=== PATIENT | female | born 1940 | race Hispanic/Latino ===

== ENCOUNTER 2016-10-28 18:13 | Observation (INO) | payer MEDICARE, OTHER ==
[2016-10-28] MEDS ORDERED: ceFAZolin 1 gm in NS 1 GM/100 ML BAG IVPB STA (19:23)
[2016-10-28] MEDS ORDERED: Vancomycin 1gm in NS 250ml 1 GM/250 ML BAG IVPB STA (19:24)
[2016-10-28] MEDS ORDERED: Sodium Chloride 0.9% 1,000 ML IV SCH (19:30)
--- NOTE | 2016-10-28 19:30 | ED PDOC ---
Arrival/HPI - General Chief Complaint: Medical Clearance Time Seen by Provider: 10/28/16 18:45 Historian: Patient - History of Present Illness Narrative History of Present Illness (Text): 10/28/16 19:27 76 year old female who denies any past medical history presents to the emergency department with fever and chills after being attacked by her cat yesterday. Patient states she was scratched on her legs and back. Denies abdominal pain, vomiting, or other complaints. PMD: Dr. Curiel Time/Duration: 24 hours Symptom Onset: Sudden Symptom Course: Unchanged Associated Symptoms (Text): Fever and chills Past Medical History - Provider Review Nursing Documentation Reviewed: Yes - Infectious Disease Hx of Infectious Diseases: None - Reproductive Menopause: Yes - Cardiac Hx Cardiac Disorders: Yes (hypertension) Hx Angina: No Hx Cardiac Arrhythmia: No Hx Circulatory Problems: No Hx Congestive Heart Failure: No Hx Heart Murmur: No Hx Heart Transplant: No Hx Hypertension: Yes Hx Internal Defibrillator: No Hx Mitral Valve Prolapse: No Hx Pacemaker: No Hx Peripheral Edema: Yes (bl le edema) Hx Peripheral Vascular Disease: Yes (left polpliteal bipass graft) - Pulmonary Hx Respiratory Disorders: No Hx Asthma: No Hx Bronchitis: No Hx Chronic Obstructive Pulmonary Disease (COPD): No Hx Emphysema: No Hx Pneumonia: No Hx Respiratory Aspiration: No Hx Respiratory Tract Infection: No Hx Sleep Apnea: No Hx Tuberculosis: No - Neurological Hx Neurological Disorder: No Hx Alzheimer's Disease: No HX Cerebrovascular Accident: No Hx Dementia: No Hx Dizziness: No Hx Meningitis: No Hx Migraine: No Hx Parkinson's Disease: No Hx Seizures: No Hx Transient Ischemic Attacks (TIA): No - HEENT Hx HEENT Disorder: No Hx Blind: No Hx Cataracts: No Hx Deafness: No Hx Difficulty Chewing: No Hx Epistaxis: No Hx Glaucoma: No Hx Macular Degeneration: No Other/Comment: had a devaited septum - Renal Hx Renal Disorder: No Hx Dialysis: No Hx Kidney Stones: No Hx Neurogenic Bladder: No Hx Pyelonephritis: No Hx Renal Cancer: No Hx Renal Failure: No - Endocrine/Metabolic Hx Endocrine Disorders: No Hx Adrenal Cancer: No Hx Diabetes Insipidus: No Hx Diabetes Mellitus Type 1: No Hx Diabetes Mellitus Type 2: No Hx Hyperthyroidism: No Hx Hypothyroidism: Yes Hx Systemic Lupus Erythematosus: No - Hematological/Oncological Hx Blood Disorders: No Hx AIDS: No Hx Anemia: No Hx Cancer: No Hx Chemotherapy: No Hx Cirrhosis: No Hx Hemophilia: No Hx Hepatitis A: No Hx Hepatitis B: No Hx Hepatitis C: No Hx Metastasis: No Hx Shingles: No Hx Sickle Cell Disease: No Hx Unexplained Bleeding: No - Integumentary Hx Dermatological Disorder: No Hx Basal Cell Carcinoma: No Hx Eczema: No Hx Melanoma: No Hx Psoriasis: No Hx Squamous Cell Carcinoma: No - Musculoskeletal/Rheumatological Hx Musculoskeletal Disorders: No Hx Arthritis: No Hx Back Pain: No Hx Degenerative Joint Disease: No Hx Falls: No Hx Fractures: No Hx Gout: No Hx Herniated Disk: No Hx Myasthenia Gravis: No Hx Osteoarthritis: No Hx Osteomyelitis: No Hx Osteoporosis: No Hx Rhabdomyolysis: No Hx Spinal Stenosis: No Hx Unsteady Gait: No - Gastrointestinal Hx Gastrointestinal Disorders: No Hx Colostomy: No Hx Crohn's Disease: No Hx Diverticulitis: No Hx Gall Bladder Disease: No Hx Gastroesophageal Reflux: No Hx Gastrointestinal Ulcer: No Hx Ileostomy: No Hx Liver Failure: No Hx Pancreatitis: No HX Swallowing Problems: No - Genitourinary/Gynecological Hx Genitourinary Disorders: No Hx Hematuria: No Hx Incontinence: No Hx Prostate Problems: No Hx Sexually Transmitted Diseases: No Hx Urinary Tract Infection: No - Psychiatric Hx Psychophysiologic Disorder: No Hx Anxiety: No Hx Bipolar Disorder: No Hx Depression: No Hx Emotional Abuse: No Hx Hallucinations: No Hx Panic Disorder: No Hx Post Traumatic Stress Disorder: No Hx Psychosis: No Hx Physical Abuse: No Hx Schizophrenia: No Hx Sexual Abuse: No Hx Substance Use: No - Past Surgical History Past Surgical History: No Previous - Surgical History Hx Amputation: No Hx Appendectomy: No Hx Cardiac Catheterization: No Hx Cholecystectomy: No Hx Coronary Stent: No Hx Gastric Bypass Surgery: No Hx Hysterectomy: No Hx Joint Replacement: No Hx Kidney Transplant: No Hx Liver Transplant: No Hx Mastectomy: No Hx Musculoskeletal Surgery: No Hx Open Heart Surgery: No Hx Orthopedic Surgery: No Hx Splenectomy: No Hx Valve Replacement: No Other/Comment: deviated septum repair - Anesthesia Hx Anesthesia: Yes Hx Anesthesia Reactions: No Hx Malignant Hyperthermia: No - Suicidal Assessment Feels Threatened In Home Enviroment: No Family/Social History - Physician Review Nursing Documentation Reviewed: Yes Family/Social History: Unknown Family HX Smoking Status: Former Smoker Hx Alcohol Use: No Hx Substance Use: No Allergies/Home Meds Allergies/Adverse Reactions: Allergies No Known Allergies Allergy (Verified 10/28/16 18:18) Home Medications: Home Meds Medication Instructions Recorded Confirmed No Known Home Med 10/28/16 10/28/16 Review of Systems - Physician Review All systems were reviewed & negative as marked: Yes - Review of Systems Constitutional: Fevers, Other (Chills) Gastrointestinal: absent: Abdominal Pain, Vomiting Skin: Other (Healing wound on left lower extremity) Physical Exam Vital Signs Reviewed: Yes Vital Signs Temp Pulse Resp BP Pulse Ox 10/29/16 00:26 99.6 F 80 18 144/63 97 10/28/16 20:14 84 16 143/80 99 10/28/16 18:21 99.3 F 88 19 145/87 100 Temperature: Afebrile Blood Pressure: Normal Pulse: Regular Respiratory Rate: Normal Appearance: Positive for: Well-Appearing, Non-Toxic, Comfortable Pain Distress: None Mental Status: Positive for: Alert and Oriented X 3 - Systems Exam Head: Present: Atraumatic, Normocephalic Mouth: Present: Moist Mucous Membranes Neck: Present: Normal Range of Motion Respiratory/Chest: Present: Clear to Auscultation, Good Air Exchange. No: Respiratory Distress, Accessory Muscle Use Cardiovascular: Present: Regular Rate and Rhythm, Normal S1, S2. No: Murmurs Abdomen: Present: Normal Bowel Sounds. No: Tenderness, Distention, Peritoneal Signs Upper Extremity: Present: Normal Inspection. No: Cyanosis, Edema Lower Extremity: Present: Edema, NORMAL PULSES (2+), Normal ROM, Tenderness, Swelling, Erythema, Temperature Abnormalties, Neurovascularly Intact, Capillary Refill < 2 s, Other (Healing wound site of injury. Surrounding cellulitis streaking down the leg to the ankle and up towards the knee. ). No: CALF TENDERNESS, Cyanosis, Dea's Sign, Deformity Neurological: Present: GCS=15, CN II-XII Intact, Speech Normal Skin: Present: Warm, Dry, Normal Color. No: Rashes Psychiatric: Present: Alert, Oriented x 3 Medical Decision Making ED Course and Treatment: Impression: 76 year old female who denies any past medical history presents to the emergency department with fever and chills after being attacked by her cat yesterday. Differential Diagnosis included but are not limited to: bug bite, cellulitis Plan: -- EKG, Chest X-ray -- Ancef, Vancomycin -- Labs --tetanus (unknown last shot) -- IV fluids -- Reassess and disposition Progress Notes: Ordered Ancef and Vancomycin. Vitals stable. Chemistry unremarkable. Will admit for cellulitis. 10/28/16 21:[address] Soriano, covering for Dr. Richards, who accepts for admission. discussed plan at bedside with brandy and her daughter. they are agreeable 10/29/16 11:20 - Lab Interpretations Lab Results: 10/28/16 19:00 10/28/16 19:00 Lab Results 10/28/16 19:00: Sodium 134, Potassium 4.1, Chloride 100, Carbon Dioxide 23, Anion Gap 15, BUN 15, Creatinine 0.9, Est GFR ( Amer) > 60, Est GFR (Non- Af Amer) > 60, Random Glucose 101, Calcium 8.9, Total Bilirubin 1.2, AST 25, ALT 26, Alkaline Phosphatase 79, Total Protein 6.8, Albumin 4.0, Globulin 2.9, Albumin/Globulin Ratio 1.4 10/28/16 19:00: PT 11.5, INR 1.06, APTT 32.7 H 10/28/16 19:00: WBC 12.9 H, RBC 4.61, Hgb 14.4, Hct 41.4, MCV 89.8, MCH 31.2, MCHC 34.8, RDW 13.6, Plt Count 186, MPV 10.6, Gran % 86.1 H, Lymph % (Auto) 8.5 L, [place] % (Auto) 5.0, Eos % (Auto) 0.2 L, Baso % (Auto) 0.2, Gran # 11.08 H, Lymph # 1.1 L, [place] # 0.7 H, Eos # 0.0, Baso # 0.03 - RAD Interpretation Radiology Orders: 10/28/16 19:21 CHEST PORTABLE [RAD] Stat - Medication Orders Current Medication Orders: Ampicillin Sodium/Sulbactam (Sodium 3 gm/ Sodium Chloride) 100 mls @ 200 mls/ hr IVPB Q6 [facility] PRN Reason: Protocol Vancomycin HCl (Vancomycin 1gm) 1 gm in 250 mls @ 167 mls/hr IVPB Q12H [facility] PRN Reason: Protocol Last Admin: 10/29/16 08:50 Dose: 167 mls/hr Discontinued Medications Acetaminophen (Tylenol 325mg Tab) 650 mg PO STAT STA Stop: 10/29/16 01:19 Last Admin: 10/29/16 01:36 Dose: 650 mg Cefazolin Sodium (Ancef 1gm In Ns) 1 gm in 100 mls @ 100 mls/hr IVPB STAT STA PRN Reason: Protocol Stop: 10/28/16 20:22 Last Admin: 10/28/16 19:40 Dose: 100 mls/hr Vancomycin HCl (Vancomycin 1gm) 1 gm in 250 mls @ 167 mls/hr IVPB STAT STA PRN Reason: Protocol Stop: 10/28/16 20:53 Last Admin: 10/28/16 19:50 Dose: 167 mls/hr Sodium Chloride (Sodium Chloride 0.9%) 1,000 mls @ 100 mls/hr IV .Q10H [facility] Last Admin: 10/28/16 19:40 Dose: 100 mls/hr Tetanus/Reduced Diphtheria/Acell Pertussis (Boostrix Vaccine Inj) 0.5 ml IM .ONCE ONE Stop: 10/28/16 21:34 Last Admin: 10/28/16 23:07 Dose: 0.5 ml - Scribe Statement The provider has reviewed the documentation as recorded by the Pradeep Jay Provider Scribe Attestation: All medical record entries made by the Dmitriyibbreana were at my direction and personally dictated by me. I have reviewed the chart and agree that the record accurately reflects my personal performance of the history, physical exam, medical decision making, and the department course for this patient. I have also personally directed, reviewed, and agree with the discharge instructions and disposition. Disposition/Present on Arrival - Present on Arrival Any Indicators Present on Arrival: Yes History of DVT/PE: No History of Uncontrolled Diabetes: No Urinary Catheter: Yes History of Decub. Ulcer: No History Surgical Site Infection Following: None - Disposition Have Diagnosis and Disposition been Completed?: Yes Diagnosis: Cellulitis Disposition: HOSPITALIZED Disposition Time: 20:00 Patient Plan: Admission Condition: GOOD
[2016-10-28 19:54] LABS: ADD MANUAL DIFF? NO
[2016-10-28 20:05] LABS: BASO # 0.03 K/mm3 (0.0-2.0); BASO % 0.2 % (0.0-3.0); EOS % 0.2 % (1.5-5.0); GRAN # 11.08 (1.4-6.5); GRAN % 86.1 % (50.0-68.0); HEMATOCRIT 41.4 % (36.0-48.0); LYMPH # 1.1 (1.2-3.4); LYMPH % 8.5 % (22.0-35.0); MEAN CELL VOLUME 89.8 fL (80.0-105.0); MEAN CORPUSCULAR HEMOGLOBIN 31.2 pg (25.0-35.0); MEAN CORPUSCULAR HGB CONC 34.8 g/dl (31.0-37.0); MEAN PLATELET VOLUME 10.6 fl (7.0-11.0); MONO # 0.7 (0.1-0.6); PLATELET COUNT 186 10^3/uL (120.0-450.0); RED CELL DISTRIBUTION WIDTH 13.6 % (11.5-14.5); WHITE BLOOD COUNT 12.9 10^3/ul (4.5-11.0)
[2016-10-28 20:10] LABS: ALB/GLOB RATIO 1.4 (1.1-1.8); ALKALINE PHOSPHATASE 79 U/L (38-133); ALT/SGPT 26 U/L (7-56); AST/SGOT 25 U/L (15-39); BILIRUBIN,TOTAL 1.2 mg/dL (0.2-1.3); BLOOD UREA NITROGEN 15 mg/dL (7-21); CALCIUM 8.9 mg/dL (8.4-10.5); CARBON DIOXIDE 23 mmol/L (21-33); CHLORIDE 100 mmol/L (98-107); GFR AFRICAN-AMERICAN > 60; GLUCOSE,RANDOM 101 mg/dL (70-110); POTASSIUM 4.1 mmol/L (3.6-5.0); SODIUM 134 mmol/L (132-148); TOTAL PROTEIN 6.8 g/dL (5.8-8.3)
[2016-10-28 20:14] LABS: INR 1.06 (0.93-1.08); PARTIAL THROMBOPLASTIN TIME 32.7 Seconds (23.7-30.8)
[2016-10-28] MEDS ORDERED: TDAP Vaccine 0.5 mL Syr IM ONE (21:33)
[2016-10-29 03:00] VITALS: BMI 27.3
[2016-10-29] MEDS: Ampicillin/Sulbactam 3 GM in Sodium Chloride 0.9% 100 ML IVPB SCH ×3 (08:00→11:25)
[2016-10-29] MEDS ORDERED: Vancomycin 1gm in NS 250ml 1 GM/250 ML BAG IVPB SCH (08:00)
--- NOTE | 2016-10-29 09:01 | RAD ---
HISTORY: Sepsis Patient COMPARISON: 12/28/2012 FINDINGS: LUNGS: Perihilar mostly infrahilar bronchovascular markings appear prominent/increased be a chronic status is conspicuity is greater on the current study- occurrences also less contrast-with less penetration. No dense consolidation seen. PLEURA: No significant pleural effusion identified, no pneumothorax apparent. CARDIOVASCULAR: Top-normal heart size. 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 OTHER FINDINGS: None. IMPRESSION: Probable mild chronic pulmonary vascular congestion and/or chronic mild interstitial lung disease. Top-normal heart size No interval consolidation. Bilateral shoulder findings as above - no interval change here perceived
[2016-10-29 09:19] VITALS: BP 106/57; PULSE 63; RESP 22; TEMP 98.4; O2SAT 96
--- NOTE | 2016-10-29 11:53 | CP.PCM.CON ---
History of Present Illness - History of Present Illness History of Present Illness: 76 year old female with PMH of HTN, peripheral vascular disease S/P left popliteal bypass graft came in to [facility] after being attacked by her daughter's cat yesterday. Apparently the adult cat got frightened by other house cat of the daughter and scratched the patient on the left leg with her front claws. The patient denies bites from the cat. As per the daughter, the cat is healthy without illness. The patient noted the area to be erythematous and painful a few hours after the scratches. She notes that the swelling and erythema have decreased since yesterday and while on antibiotics. She denies fever or chills, no nausea or vomiting, no headache or dizziness, no chest pain, no SOB, no abdominal pain, no diarrhea, no dysuria. Infectious Diseases consult is requested to further evaluate and manage. Review of Systems - Review of Systems All systems: reviewed and no additional remarkable complaints except (as per HPI ) Past Patient History - Infectious Disease Hx of Infectious Diseases: None - Past Social History Smoking Status: Current Some Days Smoker - CARDIAC Hx Hypercholesterolemia: Yes Hx Hypertension: Yes Hx Peripheral Vascular Disease: Yes (LEFT FEM POP BI-PASS) - PULMONARY Other/Comment: SMOKES - NEUROLOGICAL Hx Neurological Disorder: No Hx Alzheimer's Disease: No HX Cerebrovascular Accident: No Hx Dementia: No Hx Dizziness: No Hx Meningitis: No Hx Migraine: No Hx Parkinson's Disease: No Hx Seizures: No Hx Transient Ischemic Attacks (TIA): No - HEENT Other/Comment: DEVIATED SEPTUM - RENAL Hx Chronic Kidney Disease: No Hx Dialysis: No Hx Kidney Stones: No Hx Neurogenic Bladder: No Hx Pyelonephritis: No Hx Renal (Kidney) Cancer: No Hx Renal Failure: No - ENDOCRINE/METABOLIC Hx Hypothyroidism: Yes - HEMATOLOGICAL/ONCOLOGICAL Hx Blood Disorders: No Hx AIDS: No Hx Anemia: No Hx Cancer: No Hx Chemotherapy: No Hx Cirrhosis: No Hx Hemophilia: No Hx Hepatitis A: No Hx Hepatitis B: No Hx Hepatitis C: No Hx Metastesis: No Hx Shingles: No Hx Sickle Cell Disease: No Hx Unexplained Bleeding: No - INTEGUMENTARY Hx Dermatological Problems: No Hx Basil Cell: No Hx Eczema: No Hx Melanoma: No Hx Psoriasis: No Hx Squamous Cell: No - MUSCULOSKELETAL/RHEUMATOLOGICAL Hx Falls: No - GASTROINTESTINAL Hx Gastrointestinal Disorders: No Hx Colostomy: No Hx Crohn's Disease: No Hx Diverticulitis: No Hx Gall Bladder Disease: No Hx Gastroesophageal Reflux: No Hx Ileostomy: No Hx Liver Failure: No Hx Pancreatitis: No HX Swallowing Problems: No - GENITOURINARY/GYNECOLOGICAL Hx Genitourinary Disorders: No Hx Hematuria: No Hx Incontinence: No Hx Sexually Transmitted Disorders: No Hx Urinary Tract Infection: No - PSYCHIATRIC Hx Substance Use: No - SURGICAL HISTORY Hx Surgeries: Yes - ANESTHESIA Hx Anesthesia: Yes Hx Anesthesia Reactions: No Hx Malignant Hyperthermia: No Meds Allergies/Adverse Reactions: Allergies Allergy/AdvReac Type Severity Reaction Status Date / Time No Known Allergies Allergy Verified 10/28/16 18:18 - Medications Medications: Current Medications Sodium Chloride (Sodium Chloride 0.9%) 1,000 mls @ 100 mls/hr IV .Q10H [facility]ITA Last Admin: 10/28/16 19:40 Dose: 100 mls/hr Physical Exam - Constitutional Appears: Non-toxic, No Acute Distress - Head Exam Head Exam: NORMAL INSPECTION - ENT Exam ENT Exam: Mucous Membranes Moist - Neck Exam Neck exam: Negative for: Lymphadenopathy, Meningismus - Respiratory Exam Respiratory Exam: Decreased Breath Sounds - Cardiovascular Exam Cardiovascular Exam: +S1, +S2 - GI/Abdominal Exam GI & Abdominal Exam: Soft. absent: Tenderness - Extremities Exam Additional comments: left anterior leg with area of scratch and surrounding erythema, mildly tender, no fluctuance, no puncture wounds noted Results - Vital Signs Recent Vital Signs: Last Vital Signs Temp 100.1 F H 10/29/16 02:47 Pulse 72 10/29/16 02:47 Resp 20 10/29/16 02:47 BP 123/60 10/29/16 02:47 Pulse Ox 97 10/29/16 00:26 - Labs Result Diagrams: 10/28/16 19:00 10/28/16 19:00 Assessment & Plan - Assessment and Plan (Free Text) Plan: Assessment Left leg skin and skin structure infection, non-purulent, probably related to trauma from scratch from a house cat HTN peripheral vascular disease S/P left popliteal bypass graft Plan Patient on Vancomycin and Unasyn - as discussed with Dr. Germain, patient can be sent on PO Moxifloxacin and Doxycycline to complete a 7-10 day course
--- NOTE | 2016-10-29 12:53 | HP ---
CHIEF COMPLAINT AND HISTORY OF PRESENT ILLNESS: This is a 76-year-old female who is coming into the hospital because of a cat scratch 2 days ago. She says that she had been attacked by her cat the day before coming into the hospital. She denies any drainage. She said initially she was painful, but has improved. She has no complaints of any fevers or chills, no nausea, no vomiting, no dysuria, tegan quency, no nocturia, no headaches, no weakness in the arms or the legs. No bites. REVIEW OF SYSTEMS: All other review of symptoms is within normal limits except as mentioned. ALLERGIES: No known drug allergies. HOME MEDICATIONS: None. SOCIAL HISTORY: She is a former smoker. Denies alcohol and substance abuse. FAMILY HISTORY: Noncontributory. PHYSICAL EXAMINATION: VITAL SIGNS: Temperature is 100.1, pulse of 63, blood pressure 106/57, respirations 22, O2 saturatio n 96%. Height is 5 feet 8, weight is 180 pounds, BMI is 27.4. GENERAL: Patient lying in bed, flat, and in no apparent distress. HEAD AND NECK EXAM: Atraumatic, normocephalic. Conjunctivae are pink. Throat clear and mouth with moist mucosa. Oropharynx benign. EYES: Extraocular movements are intact. PERRLA. NECK: Supple. No JVD, thyromegaly, or adenopathy. No bruits. HEART: S1 and S2 regular rate and rhythm. No murmurs, rubs, or gallops. LUNGS: Clear to auscultation bilaterally. No wheezing rales or rhonchi appreciated. No retraction s on exam. ABDOMEN: Soft, nontender, nondistended. Bowel sounds are positive in all quadrants. No rebound. No hepatosplenomegaly. EXTREMITIES: In the left leg, there are scratches that can be seen. There is no opening in the sk in. There is no erythema, no exudates. NEURO: No facial asymmetry, tongue is midline, no uvula deviation. Power is 5/5 in upper extremity and 5/5 in lower extremity. Sensation is normal in upper extremity and lower extremity. PSYCH: Awake, alert, oriented x3. No anxiety or depression symptoms. Good insight. Normal affec t. : No CVA tenderness VASCULAR: 2+ pulses in carotid and pedal pulses. SKIN: No erythema or abnormal nodules noted. SPINE: Normal curvature. LYMPHADENOPATHY: No anterior cervical or posterior cervical adenopathy. No inguinal adenopathy. LABORATORY DATA: White count of 12.9. Chemistry shows a sodium 134, potassium 4.1. Chest x-ray done shows no infiltrates. EKG shows sinus rhythm at 85. There is right axis deviation, QTC is 414. ASSESSMENT: Left leg cat scratch/cellulitis. PLAN: The patient is currently comfortable. She has minimal signs of infection. ____. She was giv en Ancef in the ER. She is on a regular diet. The patient is going to be seen by infectious disease . If she is cleared, I will discharge the patient home and have her follow up as an outpatient. Jose Soriano MD cc: [id number] TT: 10/29/2016 10:00:36 wa
--- NOTE | 2016-10-29 16:13 | CARD ---
APPROVED REPORT EKG Measurement Heart [id number] CO [id number] <Conclusion> Normal sinus rhythm Right axis deviation Possible Right ventricular hypertrophy Nonspecific T wave abnormality Abnormal ECG
== END 2016-10-29 14:20 | disposition home or self-care (01) ==
LOC: ED 18:13 → INTOOBSV 21:30 → ERH 21:30 → 3RSO 10-29 01:12
PROVIDERS: ADMIT Internal Medicine Nephrology; ATTEND Internal Medicine Nephrology
DX: L03.116 Cellulitis of left lower limb (principal); W55.03XA Scratched by cat, initial encounter; I73.9 Peripheral vascular disease, unspecified; I10 Essential (primary) hypertension; Z23 Encounter for immunization; Z87.891 Personal history of nicotine dependence
CPT/HCPCS: 71010; 80053; 85025; 85610; 85730; 87040; 90471; 90715; 93005; 96365; 96368; 99285; G0378; J0295; J0690; J7040

== ENCOUNTER 2018-05-01 10:32 | Emergency (ER) | payer MEDICARE ==
[2018-05-01 10:41] VITALS: BMI 27.5
--- NOTE | 2018-05-01 11:22 | ED PDOC ---
Arrival/HPI - General Chief Complaint: Groin Pain Time Seen by Provider: 05/01/18 10:39 - History of Present Illness Narrative History of Present Illness (Text): 05/01/18 11:22 78 f with no significant pmhx presents to the ED with pain to her inner right groin area since 4 days ago. Patient reports bilateral leg weakness and pain to right groin area when walking. Patient states she applied an icy-hot patch to alleviate the pain but was burned by the patch. Patient notes pain in her groin area is non-radiating. Patient denies any hip pain, knee pain, lower back pin or any other complaints. PMD: Dr. Richards Time/Duration: < week (4 days) Symptom Onset: Gradual Symptom Course: Unchanged Activities at Onset: Light Context: Home Past Medical History - Provider Review Nursing Documentation Reviewed: Yes - Infectious Disease Hx of Infectious Diseases: None - Reproductive Menopause: Yes - Cardiac Hx Hypertension: Yes Hx Peripheral Vascular Disease: Yes (LEFT FEM POP BI-PASS) - Pulmonary Other/Comment: SMOKES - Neurological Hx Neurological Disorder: No - HEENT Other/Comment: DEVIATED SEPTUM - Renal Hx Renal Disorder: No - Endocrine/Metabolic Hx Hypothyroidism: Yes - Hematological/Oncological Hx Blood Disorders: No - Integumentary Hx Dermatological Disorder: No - Musculoskeletal/Rheumatological Hx Falls: No - Gastrointestinal Hx Gastrointestinal Disorders: No - Genitourinary/Gynecological Hx Genitourinary Disorders: No - Psychiatric Hx Psychophysiologic Disorder: No Hx Substance Use: No - Past Surgical History Past Surgical History: No Previous - Surgical History Hx Amputation: No Hx Appendectomy: No Hx Cardiac Catheterization: No Hx Cholecystectomy: No Hx Coronary Stent: No Hx Gastric Bypass Surgery: No Hx Hysterectomy: No Hx Joint Replacement: No Hx Kidney Transplant: No Hx Liver Transplant: No Hx Mastectomy: No Hx Musculoskeletal Surgery: No Hx Open Heart Surgery: No Hx Orthopedic Surgery: No Hx Splenectomy: No Hx Valve Replacement: No Other/Comment: deviated septum repair - Anesthesia Hx Anesthesia: Yes Hx Anesthesia Reactions: No Hx Malignant Hyperthermia: No - Suicidal Assessment Feels Threatened In Home Enviroment: No Family/Social History - Physician Review Nursing Documentation Reviewed: Yes Family/Social History: No Known Family HX Smoking Status: Current Some Days Smoker Hx Alcohol Use: No Hx Substance Use: No Allergies/Home Meds Allergies/Adverse Reactions: Allergies No Known Allergies Allergy (Verified 10/28/16 18:18) Home Medications: Home Meds Medication Instructions Recorded Confirmed Aspirin [Aspirin Chewable] 81 mg PO DAILY 05/01/18 05/01/18 Review of Systems - Physician Review All systems were reviewed & negative as marked: Yes - Review of Systems Genitourinary Female: Other (+pain to inner right groin area) Musculoskeletal: absent: Back Pain, Other (no hip pain, no knee pain) Physical Exam - Physical Exam Narrative Physical Exam (Text): 05/01/18 11:26 Gen: VS reviewed, alert, well developed, well nourished, nontoxic, mild distress, antalgic gait. ENT: normal pharynx. Eye: EOMI, PERRL. Neck: no JVD, supple, no adenopathy. CV: regular rate, regular rhythm, no rubs, no murmur, no gallops, S1, S2, pulses equal and strong. Pulm: no distress, clear to auscultation, no wheeze, no rhonchi, breath sounds equal, no rales. Abd: soft, nontender, no guarding, no rebound, no rigidity, normal bowel sounds. Ext: Pain with compression and internal rotation of right hip, no edema. Skin: Area of healing bruising on right medial thigh, no broken skin or blisters. Psych: responds appropriately to questions, normal affect. Neuro: oriented x 3, CN2-12 intact grossly, motor intact, sensation intact. Vital Signs Reviewed: Yes Vital Signs Temp Pulse Resp BP Pulse Ox 05/01/18 10:43 98.5 F 77 16 149/91 H 100 Temperature: Afebrile Blood Pressure: Hypertensive Pulse: Regular Respiratory Rate: Normal Appearance: Positive for: Well-Appearing, Non-Toxic Medical Decision Making ED Course and Treatment: 05/01/18 14:56 patient seen for right hip pain, pain with ambulation, no trauma, no leg weakness, no numbness. pain is clearly focal to the right hip. Pain completely resolved with dose of motrin, patient ambulate to ambulated with complete resolution of pain. patient stable for dc and refer to ortho/pcp. - Scribe Statement The provider has reviewed the documentation as recorded by the Pradeep Farrell All medical record entries made by the Dmitriyibbreana were at my direction and personally dictated by me. I have reviewed the chart and agree that the record accurately reflects my personal performance of the history, physical exam, medical decision making, and the department course for this patient. I have also personally directed, reviewed, and agree with the discharge instructions and d isposition. Disposition/Present on Arrival - Present on Arrival Any Indicators Present on Arrival: No History of DVT/PE: No History of Uncontrolled Diabetes: No Urinary Catheter: Yes History of Decub. Ulcer: No History Surgical Site Infection Following: None - Disposition Have Diagnosis and Disposition been Completed?: Yes Diagnosis: Hip arthritis Disposition: HOME/ ROUTINE Disposition Time: 15:01 Patient Plan: Discharge Condition: STABLE Discharge Instructions (ExitCare): Osteoarthritis Additional Instructions: Return for any new or worsening symptoms. Follow up with an orthopedic surgeon. JOAQUIM CERNA, thank you for letting us take care of you today. Your provider was Dr.Lamont Salvador and you were treated for arthritis of the right hip. The emergency medical care you received today was directed at your acute symptoms. If you were prescribed any medication, please fill it and take as directed. It may take several days for your symptoms to resolve. Return to the Emergency Department if your symptoms worsen, do not improve, or if you have any other problems. Please contact your doctor or call one of the physicians/clinics you have been referred to that are listed on the Patient Visit Information form that is included in your discharge packet. Bring any paperwork you were given at discharge with you along with any medications you are taking to your follow up visit. Our treatment cannot replace ongoing medical care by a primary care provider outside of the emergency department. Thank you for allowing the [facility] [employer] team to be part of your care today. If you had an X-Ray or CT scan: A Radiologist will review the ED reading if any change in treatment is needed we will contact you. If you had a blood, urine, or wound culture: It will take several days for the results, if any change in treatment is needed we will contact you. If you had an STI test: It will take 48 hours for the results. Please call after 1 week if you have not heard back. Prescriptions: Ibuprofen [Motrin Tab] 600 mg PO QID #42 tab Referrals: Anjali Richards DO [Primary Care Provider] - Follow up with primary Marcos Falk III, MD [Medical Doctor] - Follow up with primary [employer] [Outside] - Follow up with primary Abigail Cabrera MD [Medical Doctor] - Follow up with primary Forms: [employer] (Maltese)
--- NOTE | 2018-05-01 14:55 | RAD ---
Indication: pain, focus acetabulum area Right hip with pelvis radiographs Comparison: CT abdomen and pelvis without/with IV contrast performed 11/03/14 Findings: Osseous demineralization. Degenerative changes. Marked joint space narrowing and subchondral sclerosis. No acute displaced fracture or dislocation identified. Sacroiliac joints appear intact. Mild constipation. Soft tissues appear unremarkable. No evidence of radiopaque foreign body. Vascular stent, left pelvis. Impression: Osseous demineralization. Degenerative changes including marked joint space narrowing and subchondral sclerosis. No acute displaced fracture or dislocation evident. If high clinical index of suspicion, suggest cross-sectional imaging for further evaluation. Otherwise, if symptoms persist or if there is continued clinical concern, x-ray follow-up in 7-10 days should be considered.
[2018-05-01 15:10] VITALS: BP 129/83; PULSE 75; RESP 19; TEMP 97; O2SAT 99
== END 2018-05-01 15:12 | disposition home or self-care (01) ==
LOC: ED 10:32
DX: M16.11 Unilateral primary osteoarthritis, right hip (principal)

== ENCOUNTER 2018-05-29 11:02 | Emergency (ER) | payer MEDICARE ==
[2018-05-29 11:02] VITALS: BMI 27.5
[2018-05-29 11:25] VITALS: RESP 18; TEMP 98.6; O2SAT 99
--- NOTE | 2018-05-29 12:00 | ED PDOC ---
Arrival/HPI - General Chief Complaint: Lower Extremity Problem/Injury Time Seen by Provider: 05/29/18 11:22 - History of Present Illness Narrative History of Present Illness (Text): 05/29/18 11:59 78 y/o F with PMHx of PVD s/p L popliteal bypass graft, R hip osteoarthritis presents to ED with complaints of R groin pain thats is 10/10 severity at its worse that is exacerbated with walking, alleviated with ibuprofen 600mg that she has been taking, thats worst at night. She reports she presented last month for a similar complaint. She denies any recent trauma to the area. She had followed up with orthopedic surgery after her visit last month, and was told she may need a hip replacement in the future. She currently presents to ED as she ran out of pain medication and would like relief. She denies numbness or tingling to the leg, erythema, discharge, leg weakness, falls. She denies fevers, chills, headache, dizziness, chest pain, palpitations, shortness of breath, n/v/c/d/dysuria. Time/Duration: Prior to Arrival Symptom Onset: Gradual Symptom Course: Unchanged Severity Level: Moderate Past Medical History - Provider Review Nursing Documentation Reviewed: Yes - Infectious Disease Hx of Infectious Diseases: None - Reproductive Menopause: Yes - Cardiac Hx Cardiac Disorders: Yes Hx Hypertension: Yes Hx Peripheral Vascular Disease: Yes (LEFT FEM POP BI-PASS) - Pulmonary Other/Comment: SMOKES - Neurological Hx Neurological Disorder: No - HEENT Other/Comment: DEVIATED SEPTUM - Renal Hx Renal Disorder: No - Endocrine/Metabolic Hx Hypothyroidism: Yes - Hematological/Oncological Hx Blood Disorders: No - Integumentary Hx Dermatological Disorder: No - Musculoskeletal/Rheumatological Hx Falls: No - Gastrointestinal Hx Gastrointestinal Disorders: No - Genitourinary/Gynecological Hx Genitourinary Disorders: No - Psychiatric Hx Psychophysiologic Disorder: No Hx Substance Use: No - Past Surgical History Past Surgical History: No Previous - Surgical History Hx Amputation: No Hx Appendectomy: No Hx Cardiac Catheterization: No Hx Cholecystectomy: No Hx Coronary Stent: No Hx Gastric Bypass Surgery: No Hx Hysterectomy: No Hx Joint Replacement: No Hx Kidney Transplant: No Hx Liver Transplant: No Hx Mastectomy: No Hx Musculoskeletal Surgery: No Hx Open Heart Surgery: No Hx Orthopedic Surgery: No Hx Splenectomy: No Hx Valve Replacement: No Other/Comment: deviated septum repair - Anesthesia Hx Anesthesia: Yes Hx Anesthesia Reactions: No Hx Malignant Hyperthermia: No - Suicidal Assessment Feels Threatened In Home Enviroment: No Family/Social History - Physician Review Nursing Documentation Reviewed: Yes Family/Social History: Unknown Family HX Smoking Status: Current Some Days Smoker Hx Alcohol Use: No Hx Substance Use: No Allergies/Home Meds Allergies/Adverse Reactions: Allergies No Known Allergies Allergy (Verified 10/28/16 18:18) Home Medications: Home Meds Medication Instructions Recorded Confirmed Aspirin [Aspirin Chewable] 81 mg PO DAILY 05/01/18 05/01/18 Review of Systems - Review of Systems Constitutional: Normal. absent: Fevers, Night Sweats Eyes: Normal ENT: Normal Respiratory: Normal Cardiovascular: Normal Gastrointestinal: Normal Genitourinary Female: Normal Musculoskeletal: Arthralgias. absent: Back Pain, Joint Swelling, Myalgias Skin: Normal Neurological: Normal Endocrine: Normal Hemo/Lymphatic: Normal Psychiatric: Normal Physical Exam Vital Signs Reviewed: Yes Vital Signs Temp Pulse Resp BP Pulse Ox 05/29/18 11:22 98.6 F 74 18 159/78 H 99 Temperature: Afebrile Blood Pressure: Hypertensive Pulse: Regular Respiratory Rate: Normal Appearance: Positive for: Well-Appearing, Non-Toxic, Comfortable Pain Distress: None Mental Status: Positive for: Alert and Oriented X 3 - Systems Exam Head: Present: Atraumatic, Normocephalic Pupils: Present: PERRL Extroacular Muscles: Present: EOMI Conjunctiva: Present: Normal Mouth: Present: Moist Mucous Membranes Neck: Present: Normal Range of Motion Respiratory/Chest: Present: Clear to Auscultation, Good Air Exchange. No: Respiratory Distress, Accessory Muscle Use Cardiovascular: Present: Regular Rate and Rhythm, Normal S1, S2. No: Murmurs Abdomen: No: Tenderness, Distention, Peritoneal Signs Back: Present: Normal Inspection Upper Extremity: Present: Normal Inspection. No: Cyanosis, Edema Lower Extremity: Present: Normal Inspection, NORMAL PULSES, Neurovascularly Intact. No: Edema, CALF TENDERNESS, Cyanosis, Tenderness, Swelling, Deformity, Temperature Abnormalties Neurological: Present: GCS=15, CN II-XII Intact, Speech Normal, Motor Func Grossly Intact, Normal Sensory Function Skin: Present: Warm, Dry, Normal Color. No: Rashes Psychiatric: Present: Alert, Oriented x 3, Normal Insight, Normal Concentration Medical Decision Making ED Course and Treatment: 05/29/18 12:22 Impression: 78 y/o F with PMHx of PVD with L popliteal bypass graft, R hip osteoarthritis presents to ED with pain in R groin Prior notes and results have been reviewed Differential diagnosis includes but is not limited to: Pain related to R Hip osteoarthritis Plan: Toradol IM Reassess & Dispo Progress Notes: - PA / MEMBER SERVICE REPRESENTATIVE / Resident Statement /DO has reviewed & agrees with the documentation as recorded. MD/ has examined the patient and agrees with the treatment plan. Disposition/Present on Arrival - Present on Arrival Any Indicators Present on Arrival: Yes History of DVT/PE: No History of Uncontrolled Diabetes: No Urinary Catheter: Yes History of Decub. Ulcer: No History Surgical Site Infection Following: None - Disposition Have Diagnosis and Disposition been Completed?: Yes Diagnosis: Hip pain, right Disposition: HOME/ ROUTINE Disposition Time: 12:17 Condition: GOOD Discharge Instructions (ExitCare): Hip Pain (DC) Additional Instructions: Jennifer Mcclellan,thank you for letting us take care of you today.The emergency medical care you received today was directed at your acute symptoms. If you were prescribed any medication, please fill it and take as directed. It may take several days for your symptoms to resolve. Return to the Emergency Department if your symptoms worsen, do not improve, or if you have any other problems. Please contact your doctor or call one of the physicians/clinics you have been referred to that are listed on the Patient Visit Information form that is included in your discharge packet. Bring any paperwork you were given at discharge with you along with any medications you are taking to your follow up visit. Our treatment cannot replace ongoing medical care by a primary care provider outside of the emergency department. Thank you for allowing the [facility] team to be part of your care today. Prescriptions: Ibuprofen [Motrin Tab] 600 mg PO Q6H PRN #30 tab PRN Reason: Pain, Moderate (4-7) Referrals: Tom Liao MD [Staff Provider] - Follow up with primary Forms: [employer] (Bolivian)
[2018-05-29 12:40] VITALS: BP 148/66; PULSE 77
== END 2018-05-29 12:44 | disposition home or self-care (01) ==
LOC: ED 11:02
DX: M25.551 Pain in right hip (principal); E03.9 Hypothyroidism, unspecified; I10 Essential (primary) hypertension
CPT/HCPCS: 96372; 99284; J1885

== ENCOUNTER 2018-06-15 10:20 | Outpatient (CLI) | payer MEDICARE | END 2018-06-15 10:21 | disposition home or self-care (01) | LOC: RAD 10:20 ==